=== PATIENT | male | born 1970 | race Caucasian/White ===

== ENCOUNTER 2022-01-14 17:04 | Emergency (ER) | payer BC, SELFPAY ==
[2022-01-14] VITALS (24 sets, daily range): BP systolic 117–176; BP diastolic 67–92; PULSE 61–84; RESP 14–25; TEMP 36.1–36.8; O2SAT 99–100
--- NOTE | ~2022-01-14 | XR_ITS ---
XR chest 2V DATE: 01/14/2022 18:04 INDICATION: Midsternal chest pain radiating to posterior neck and jaw for 2 hours TECHNIQUE: 2 views COMPARISON: None FINDINGS: There is prominent elevation left leaf of the diaphragm. Normal heart size. No hilar or mediastinal enlargement. No pulmonary infiltrate or consolidation, pleural effusion or pulmonary vascular congestion or pneumo thorax is detected. There is osteopenia. There is dextroscoliosis of the thoracolumbar spine. IMPRESSION: Prominent elevation of left diaphragm No active cardiopulmonary disease Reviewed, dictated and finalized at location B.
--- NOTE | 2022-01-14 17:07 | ECG_ITS ---
Measurements Intervals [place] Rate: 60 P: 50 [place]: 166 QRS: 33 QRSD: 91 T: 65 QT: 389 QTc: 390 Interpretive Statements SINUS RHYTHM EARLY PRECORDIAL R/S TRANSITION BORDERLINE ECG NO PREVIOUS ECG AVAILABLE FOR COMPARISON Electronically Signed On 01-14-2022 21:07:47 CDT by Misha Hutchinson D.O.
[2022-01-14 17:29] LABS: Basophils Percent Auto 0.4 % (0.2-1.2); Eosinophils Absolute Auto 0.2 K/mm3 (0-0.3); Eosinophils Percent Auto 1.8 % (0-4.4); Hematocrit 47.1 % (42.0-52.0); Hemoglobin 15.5 g/dL (14.0-18.0); Immature Granulocyte Absolute 0.02 K/mm3 (0.00-0.031); Immature Granulocyte Percent A 0.2 % (0-0.5); Lymphocytes Absolute Auto 1.28 K/mm3 (0.9-3.2); Lymphocytes Percent Auto 13.5 % (18.3-44.2); Mean Corpuscular HGB Conc 32.9 g/dl (32-36); Mean Corpuscular Hemoglobin 30.2 pg (26-34); Mean Corpuscular Volume 91.8 fl (80-100); Mean Platelet Volume 9.9 fl (7.4-10.4); Monocytes Absolute Auto 0.6 K/mm3 (0.1-0.6); Monocytes Percent Auto 6.5 % (2.6-8.5); Neutrophils Absolute Auto 7.4 K/mm3 (1.3-6.7); Neutrophils Percent Auto 77.6 % (45.5-73.1); Platelet Count Result 225 k/mm3 (150-375); Red Blood Count 5.13 M/mm3 (4.6-6.20); Red Cell Distribution Width 12.7 % (11.5-14.5); White Blood Count 9.5 K/mm3 (4.5-10.0)
[2022-01-14 17:40] LABS: INR 1.1; Prothrombin Time 13.3 Seconds (11.1-14.7)
[2022-01-14 17:41] LABS: Partial Thromboplastin Time 29.1 SECONDS (22.3-36.8)
[2022-01-14 17:43] LABS: Alanine Aminotransferase 28 U/L (6-50); Albumin Level 4.5 g/dL (3.5-5.1); Alkaline Phosphatase 93 U/L (38-126); Anion Gap 10 mmol/L (8-16); Aspartate Amino Transferase 30 U/L (17-59); Bilirubin,Total 0.3 mg/dL (0.2-1.3); Blood Urea Nitrogen 16 mg/dL (9-20); Carbon Dioxide 27 mmol/L (22-30); Chloride 103 mmol/L (98-107); Estimated CRCL calculation 94 ml/min; Estimated Glomerular Filt Rate > 60; Glucose 96 mg/dL (65-110); Lipase 88 U/L (23-300); Potassium 3.7 mmol/L (3.4-5.0); Sodium 140 mmol/L (137-145)
[2022-01-14 17:54] LABS: Troponin I < 0.012 ng/mL (0.000-0.034)
[2022-01-14] MEDS: ASPIRIN 81 MG CHEWABLE TABLET 324 MG PO (18:27)
--- NOTE | 2022-01-14 18:30 | ED.GENADULT ---
HPI - General Adult General Chief complaint: Chest Pain Stated complaint: chest pain Time Seen by Provider: 01/14/22 17:51 History of Present Illness HPI narrative: This is a 51-year-old male with no medical problems presenting to ED with a chief complaint of chest pain. Patient was on a video conference at 2:00 p.m. when he started experiencing a dull pain in the center of his chest. It radiates to his jaw. It is 6/10 in intensity. It is constant but improving. Patient has never experienced pain like this before. Said it is worse when he laid down. There are no alleviating factors. Patient denies vomiting, diaphoresis or exertional component. Patient denies fever, chills, lower extremity edema or risk factors for DVT. Patient has been doing pushups lately. Related Data Home Medications Medication Instructions Recorded Confirmed Daily Fiber 01/14/22 Vitamin B-12 01/14/22 fexofenadine 180 mg tablet 180 mg PO DAILY 01/14/22 turmeric 01/14/22 Allergies Allergy/AdvReac Type Severity Reaction Status Date / Time shellfish derived Allergy Rash Verified 01/14/22 18:09 Review of Systems Review of Systems: CONSTITUTIONAL: Denies night sweats. EYES: No eye pain ENT: Denies rhinorrhea CARDIOVASCULAR: Denies palpitations RESPIRATORY: Denies hemoptysis GASTROINTESTINAL: Denies hematemesis GENITOURINARY: Denies hematuria. SKIN: Denies rash MUSCULOSKELETAL: Denies myalgia. NEUROLOGIC: Denies weakness. PSYCHIATRIC: Denies delusions [facility] Surgical History Surgical History (Updated 01/14/22 @ 18:31 by Jovon Valenzuela MD) History of colon surgery Social History Social History (Updated 01/14/22 @ 18:31 by Jovon Valenzuela MD) Social History: Patient drinks alcohol occasionally, denies use of tobacco drugs Exam Narrative: APPEARANCE: No apparent distress. patient is polite during the interview Head atraumatic. EYES: PERRLA/EOMI, NOSE: Normal no drainage NECK: Supple, Trachea midline RESPIRATORY: CTAB, No increased work of breathing. CARDIOVASCULAR: S1S2 appreciated, no reproducible pain on palpitations. no peripheral edema ABDOMINAL: Soft, nontender, nondistended, MUSCULOSKELETAl: No obvious deformities NEURO: Alert. Moving 4/4 extremities SKIN:: Warm, dry. Normal color PSYCHIATRIC: Normal affect Course Vital Signs Vital signs: Vital Signs Temperature 97.0 F L 01/14/22 17:08 Pulse Rate 64 01/14/22 17:08 Respiratory Rate 20 01/14/22 17:08 Blood Pressure 176/92 H 01/14/22 17:08 Pulse Oximetry 100 01/14/22 17:08 Oxygen Delivery Room Air 01/14/22 17:08 Temperature 98.2 F 01/14/22 18:03 Pulse Rate 81 01/14/22 20:31 Respiratory Rate 20 01/14/22 20:31 Blood Pressure 131/77 01/14/22 20:31 Pulse Oximetry 100 01/14/22 18:06 Oxygen Delivery Room Air 01/14/22 18:06 Medical Decision Making MDM Narrative Medical decision making narrative: This is a 51-year-old male presenting to ED with chest pain. An ACS workup has been obtained. Lab work was integral within acceptable limits. He has 2- troponins. Chest x-ray showed elevated left hemidiaphragm. This is of unknown etiology and unknown significance. Patient does not have any respiratory complaints at this time. The patient will be given pulmonary follow-up. Upon re-evaluation the patient has stable vital signs. He is still experiencing some chest pain but it mani improved drastically. Patient's EKGs and labs are reviewed without significant high risk changes. Cardiac risk factors reviewed. Heart score is <4 and it is reasonable for further risk stratification to be performed as outpatient. Pain was not sudden or maximal onset not tearing or ripping quality. No other signs or symptoms suggest aortic dissection. A low risk Wells criteria is noted. PE is felt to be unlikely. No pneumonia seen on evaluation today. Patient is felt to be reasonable candidate for continued evaluation as
[2022-01-14 21:07] LABS: Troponin I < 0.012 ng/mL (0.000-0.034)
[2022-01-14] MEDS: ACETAMINOPHEN 500 MG TABLET 1000 MG PO (22:10)
[2022-01-14] MEDS: IBUPROFEN 400 MG TABLET 800 MG PO (22:11)
== END 2022-01-14 22:47 | disposition home or self-care (01) ==
PROVIDERS: Emergency Medicine; Emergency Provider Emergency Medicine
DX: R07.9 Chest pain, unspecified (principal); R91.8 Other nonspecific abnormal finding of lung field; R94.31 Abnormal electrocardiogram [ECG] [EKG]
CPT/HCPCS: 36415; 71046; 80053; 83690; 84484; 85025; 85610; 85730; 93005; 99284; A9270